=== PATIENT | male | born 1975 | race Caucasian/White ===

== ENCOUNTER 2021-03-21 19:20 | Emergency (ER) | payer OTHER, MEDICAID ==
[~2021-03-21] VITALS: Ht 160 cm; Wt 63.5 kg
[2021-03-21 19:20] VITALS: BP 150/90
--- NOTE | 2021-03-21 19:20 | NUR ---
TO BED #09, AMBULATORY BROUGHT IN BY AMBULANCE WITH C/O N/V.
--- NOTE | 2021-03-21 19:32 | NUR ---
46/M BIBA due to heat exposure, nausea, and vomiting. Patient also complaining of bilateral leg and back soreness/pain /. Pt denies fever and diarrhea. Blood sugar 236 upon triage. Pt AAOx4, PERRL. Abdomen is soft and non-tender, active bowel sounds noted. PMH: HTN, DM NKDA
[2021-03-21] MEDS ORDERED: NACL 0.9% 2,000 ML IV ONE (19:50)
[2021-03-21] MEDS ORDERED: KETOROLAC 30 MG/ML VIAL IVP ONE (19:50)
[2021-03-21 20:12] LABS: BASOPHILS # (AUTO) 0.1 K/uL (0.00-0.22); EOSINOPHILS % (AUTO) 0.2 % (0.0-4.0); HEMATOCRIT 46.6 % (36-52); HEMOGLOBIN 16.2 g/dL (12.0-18.0); LYMPHOCYTES # (AUTO) 0.9 K/uL (2.0-11.5); LYMPHOCYTES % (AUTO) 12.2 % (20.5-51.1); MEAN CORPUSCULAR HEMOGLOBIN 33 pg (27-31); MEAN CORPUSCULAR HGB CONC 35 g/dL (33-37); MEAN CORPUSCULAR VOLUME 95.6 fL (80-94); MONOCYTES # (AUTO) 0.7 K/uL (0.8-1.0); MONOCYTES % (AUTO) 9.6 % (1.7-9.3); NEUTROPHILS # (AUTO) 5.5 K/uL (1.8-7.7); PLATELET COUNT (AUTO) 246 K/uL (140-450); RED BLOOD CELL COUNT(AUTO) 4.88 MIL/uL (4.20-6.10); WHITE BLOOD COUNT (AUTO) 7.1 K/uL (4.8-10.8)
[2021-03-21 20:21] LABS: ANION GAP 21.5 (8-16); CARBON DIOXIDE 24.2 mmol/L (21-32); CREATININE 0.8 mg/dL (0.6-1.3); POTASSIUM 3.7 mmol/L (3.5-5.1)
[2021-03-21 20:27] LABS: ALBUMIN 3.8 g/dL (3.4-5.0)
--- NOTE | 2021-03-21 21:25 | NUR ---
urine sample collected and sent to lab
[2021-03-21 21:38] LABS: APPEARANCE,URINE CLEAR (CLEAR); BILIRUBIN,URINE NEGATIVE (NEGATIVE); BLOOD, URINE NEGATIVE (NEGATIVE); COLOR,URINE YELLOW (YELLOW); LEUKOCYTE ESTERASE ,URINE NEGATIVE (NEGATIVE); NITRITE, URINE NEGATIVE (NEGATIVE); PH,URINE 6.5 (5.0-9.0); UGLUCOSE 3+ (NEGATIVE)
[2021-03-21 21:55] LABS: BARBITURATE, URINE NEGATIVE ng/ml (NEG <=200); BENZODIAZEPINE, URINE NEGATIVE ng/mL (NEG <=200); CANNABINOID, URINE POSITIVE ng/mL (NEG <=50); COCAINE, URINE NEGATIVE ng/mL (NEG <=300); OPIATE, URINE NEGATIVE ng/mL (NEG <=2000); PHENCYCLIDINE SCREEN,URINE NEGATIVE ng/mL (NEG <=25)
[2021-03-21] MEDS ORDERED: ONDANSETRON 4 MG/2 ML VIAL IVP ONE (22:00)
[2021-03-21] MEDS ORDERED: NACL 0.9% 1,000 ML IV ONE (22:00)
[2021-03-21] MEDS ORDERED: ONDA-24 SL (23:19)
[2021-03-21] MEDS ORDERED: NAPR-54 PO (23:19)
[2021-03-22] MEDS ORDERED: LORazepam 2 MG/ML VIAL IVP ONE
[2021-03-22] MEDS ORDERED: DICYCLOMINE HCL LIQUID 20 MG, ALUMINUM HYD/MAG/SIMETHICONE 30 ML, LIDOCAINE VISCOUS 2% ... PO ONE ×3
[2021-03-22] MEDS ORDERED: LIDOCAINE VISCOUS 2% 20 ML UDC ONE (00:02)
[2021-03-22] MEDS ORDERED: ALUMINUM HYD/MAG/SIMETHICONE 30 ML UDC ONE (00:02)
[2021-03-22] MEDS ORDERED: DICYCLOMINE HCL LIQUID 10 MG/5 ML UDC ONE (00:02)
--- NOTE | 2021-03-22 00:21 | NUR ---
PT TAKEN TO CT
--- NOTE | 2021-03-22 00:30 | NUR ---
PT RETURN FROM CT
--- NOTE | 2021-03-22 01:30 | NUR ---
pt asleep. no s/sx of pain or discomfort noted. vs stable. pt kept comfortable. safety measures in place. will continue to monitor.
[2021-03-22] MEDS ORDERED: NAPR-54 PO (02:31)
[2021-03-22] MEDS ORDERED: GABA300C PO (02:31)
[2021-03-22] MEDS ORDERED: ONDA-24 SL (02:31)
[2021-03-22] MEDS ORDERED: METF500T PO (02:31)
[2021-03-22 02:40] VITALS: BP 135/78
--- NOTE | 2021-03-22 02:40 | NUR ---
Patient discharged with v/s stable. Written and verbal after care instructions given and explained. Patient alert, oriented and verbalized understanding of instructions. Ambulatory with steady gait. All questions addressed prior to discharge. IV access and ID band removed. Patient advised to follow up with PMD. Rx of Gabapentin, Metformin, Naprosyn, Ondansetron given. Patient educated on indication of medication including possible reaction and side effects. Opportunity to ask questions provided and answered.
== END 2021-03-22 02:40 | disposition home or self-care (01) ==
LOC: MED 19:20
DX: T67.5XXA Heat exhaustion, unspecified, initial encounter (principal); R53.1 Weakness; R42 Dizziness and giddiness; M79.10 Myalgia, unspecified site; E11.9 Type 2 diabetes mellitus without complications; I10 Essential (primary) hypertension; Z79.899 Other long term (current) drug therapy
CPT/HCPCS: 36415; 70450; 80053; 80305; 81003; 82550; 83690; 85025; 96361; 96374; 96375; 99285; J1885; J2060; J2405; J7030